=== PATIENT | male | born 1945 | race Caucasian/White ===

== ENCOUNTER → 2018-01-23 | Outpatient (CLI) | payer OTHER, MEDICARE ==
[~2018-01-23] MED LIST: ACET325T14 PO; AGELESS MALE PO; AMOX1TAB64 PO; CALC1CAP8 PO; CHOL200024 PO; DOCU100C33 PO; GABA100C PO; GLUC-165 PO; HYDR-3241 PO; HYDR-3653 PO; MAGNESIUM PO; METAMUCIL425 GM PO; MULT-658 PO; OMEG-123 PO; ONDA4TAB7 PO; RED600TA PO; SUPER BETA PROSTATE PO; TRAM50TA2 PO
== END | disposition home or self-care (01) ==
LOC: STAR 13:25
PROVIDERS: ATTEND Orthopaedic Surgery
DX: Z01.818 Encounter for other preprocedural examination (principal); R00.1 Bradycardia, unspecified; M25.512 Pain in left shoulder; M75.102 Unspecified rotator cuff tear or rupture of left shoulder, not specified as traumatic
CPT/HCPCS: 93005

== ENCOUNTER 2018-01-30 07:28 | Day surgery (SDC) | payer OTHER, MEDICARE ==
[~2018-01-30] VITALS: Ht 170.2 cm; Wt 68.5 kg
[2018-01-30 07:56] VITALS: BP 174/72
[2018-01-30] MEDS ORDERED: LACTATED RINGERS 1,000 ML IV SCH (07:59)
[2018-01-30] MEDS ORDERED: ONDANSETRON ODT 8 MG PO ONE (08:00)
[2018-01-30] MEDS ORDERED: GABAPENTIN 300 MG CAPSULE PO ONE (08:00)
[2018-01-30] MEDS ORDERED: ACETAMINOPHEN 500 MG TABLET PO ONE (08:00)
[2018-01-30] MEDS ORDERED: MIDAZOLAM 1 MG/ML, 2ML ONE (08:32)
[2018-01-30] MEDS ORDERED: FENTANYL PF 100 MCG/2ML ONE (08:32)
[2018-01-30] MEDS ORDERED: BUPIVACAINE/PF 0.5% ONE ×3 (09:07→10:07)
[2018-01-30] MEDS ORDERED: LIDOCAINE 1%-EPI 1:100K, 20ML ONE (09:07)
[2018-01-30] MEDS ORDERED: EPINEPHRINE 1 MG/ML, 1ML ONE ×2 (09:07→09:16)
[2018-01-30] MEDS ORDERED: LIDOCAINE 1%-EPI 1:100K, 30ML ONE (09:16)
[2018-01-30] MEDS ORDERED: ROCURONIUM 10 MG/ML,10ML ONE (09:22)
[2018-01-30] MEDS ORDERED: ONDANSETRON 2MG/ML, 2ML IV PRN (10:00)
[2018-01-30] MEDS ORDERED: ALBUTEROL/IPRATROPIUM 2.5MG/0.5MG, 3 ML NPPB PRN (10:00)
[2018-01-30] MEDS ORDERED: MIDAZOLAM 1 MG/ML, 2ML IV PRN (10:00)
[2018-01-30] MEDS ORDERED: HYDROmorphone 1 MG/ML, 1ML IV PRN (10:00)
[2018-01-30] MEDS ORDERED: SCOPOLAMINE PATCH, 1.5MG PATCH.TD72 TD PRN (10:00)
[2018-01-30] MEDS ORDERED: hydrALAzine 20 MG/ML, 1ML IV PRN (10:00)
[2018-01-30] MEDS ORDERED: OXYcodone 5 MG/5 ML ORAL.SOL UDC PO PRN (10:00)
[2018-01-30] MEDS ORDERED: FENTANYL PF 100 MCG/2ML IV PRN (10:00)
[2018-01-30] MEDS ORDERED: LABETALOL 5MG/ML, 20ML IV PRN (10:00)
[2018-01-30] MEDS ORDERED: PROMETHAZINE 25 MG SUPP PR PRN (10:00)
[2018-01-30] MEDS ORDERED: MEPERIDINE/PF 25MG/0.5ML IVPush PRN (10:00)
[2018-01-30] MEDS ORDERED: CEFAZOLIN 1,000 MG ONE (10:07)
[2018-01-30] MEDS ORDERED: PROPOFOL 10 MG/ML, 20ML ONE (10:07)
[2018-01-30] MEDS ORDERED: LIDOCAINE-MPF 2% ,5ML ONE (10:07)
[2018-01-30] MEDS ORDERED: DEXAMETHASONE 4 MG/ML, 1ML ONE (10:07)
[2018-01-30] MEDS ORDERED: SUCCINYLCHOLINE 20 MG/ML, 10ML ONE (10:07)
[2018-01-30] MEDS ORDERED: OXYcodone 5 MG/5 ML ORAL.SOL UDC ONE (11:38)
[2018-01-30] MEDS ORDERED: MEPERIDINE/PF 50 MG/ML ONE (11:39)
== END 2018-01-30 15:42 | disposition home or self-care (01) ==
LOC: OUT 07:28
PROVIDERS: ATTEND Orthopaedic Surgery
DX: S43.432A Superior glenoid labrum lesion of left shoulder, initial encounter (principal); M75.112 Incomplete rotator cuff tear or rupture of left shoulder, not specified as traumatic; M66.322 Spontaneous rupture of flexor tendons, left upper arm; M94.212 Chondromalacia, left shoulder; M25.812 Other specified joint disorders, left shoulder; M19.012 Primary osteoarthritis, left shoulder; I10 Essential (primary) hypertension; X58.XXXA Exposure to other specified factors, initial encounter; Y93.89 Activity, other specified; Y92.89 Other specified places as the place of occurrence of the external cause; Y99.8 Other external cause status; Z87.891 Personal history of nicotine dependence
CPT/HCPCS: 29823; 29824; 29826; 29827; 29828; 64415; C1713; J0171; J0330; J0690; J1100; J2175; J2250; J2704; J3010; J3490; J7120; Q0162